=== PATIENT | female | born 1995 | race Caucasian/White ===

== ENCOUNTER 2017-05-24 17:14 | Outpatient (CLI) | payer SELFPAY ==
[2017-05-24] VITALS (9 sets, daily range): BP systolic 116–147; BP diastolic 59–84
[2017-05-24 18:54] LABS: BILIRUBIN,URINE NEGATIVE (NEGATIVE); KETONES,URINE NEGATIVE (NEGATIVE); LEUKOCYTE ESTERASE ,URINE 1+ (NEGATIVE); NITRITE,URINE NEGATIVE (NEGATIVE); PH,URINE 6 (5-9); PROTEIN,URINE 1+ (NEGATIVE); UROBILINOGEN,URINE 4 MG/DL (NORMAL)
[2017-05-24] MEDS ORDERED: PREN1TAB86 PO (19:10)
--- NOTE | 2017-05-24 19:25 | Diagnostic Imaging Report ---
EXAMINATION: Ultrasound OB dated 05/24/2017. INDICATION: Check head placement. TECHNIQUE: Multiple real-time grayscale images were obtained over the gravid uterus. COMPARISON: None FINDINGS: Limited evaluation of the fetus is performed. The fetus is a single live intrauterine gestation, currently in a cephalic position. Amniotic fluid index is within normal limits. Placenta is anterior. heart rate is 153 beats per minute. Cord insertion could not be seen by the senior interactive producer. The visualized anatomy unremarkable. Biometrical measurements are as follows: Biparietal 9.5 cm, age 39 weeks 0 days. Head circumference 34.82 cm, age 40 weeks 3 days. Abdominal circumference 34.86 cm, age 38 weeks 6 days. Femur length 7.30 cm, age 37 weeks 3 days. Sonographic estimate age: 39 weeks 0 days. Sonographic estimated date of delivery: 05/31/17. Estimated Weight: 3560 gm (+/- 520 gm). LMP percentile: 76%. heart rate: 153 beats per minute. number: 1 of 1. IMPRESSION: Single live intrauterine gestation currently cephalic in positioning. Dictated by: Dictated on workstation # [id number]
[2017-05-24] MEDS ORDERED: LACTATED RINGERS 1,000 ML IV ONE (22:00)
[2017-05-24 22:19] LABS: BASOPHILS % (AUTO) 0 % (0-10); EOSINOPHILS # (AUTO) 0.1 10^3/uL (0.0-0.3); EOSINOPHILS % (AUTO) 1 % (0-10); LYMPHOCYTES # (AUTO) 3.4 X 10^3 (1.0-4.0); LYMPHOCYTES % (AUTO) 19 % (12-44); MEAN CORPUSCULAR HEMOGLOBIN 31 PG (25-34); MEAN CORPUSCULAR HGB CONC 35 G/DL (32-36); MEAN CORPUSCULAR VOLUME 90 FL (80-99); MEAN PLATELET VOLUME 10.2 FL (7.4-10.4); MONOCYTES # (AUTO) 1.2 X 10^3 (0.0-1.0); MONOCYTES % (AUTO) 7 % (0-12); NEUTROPHILS # (AUTO) 13.4 X 10^3 (1.8-7.8); NEUTROPHILS % (AUTO) 74 % (42-75); PLATELET COUNT 242 10^3/uL (130-400); RED BLOOD COUNT 4.01 10^6/uL (4.35-5.85); RED CELL DISTRIBUTION WIDTH 13.3 % (10.0-14.5); WHITE BLOOD COUNT 18.1 10^3/uL (4.3-11.0)
[2017-05-24 22:35] LABS: ALANINE AMINOTRANSFERASE 16 U/L (0-55); ALBUMIN 3.3 GM/DL (3.2-4.5); ANION GAP 11 MMOL/L (5-14); ASPARTATE AMINO TRANSFERASE 24 U/L (5-34); BILIRUBIN,TOTAL 0.5 MG/DL (0.1-1.0); BLOOD UREA NITROGEN 12 MG/DL (7-18); BUN/CREATININE RATIO 20; CALCIUM 9.4 MG/DL (8.5-10.1); CARBON DIOXIDE 18 MMOL/L (21-32); CHLORIDE 105 MMOL/L (98-107); CREATININE SERUM 0.61 MG/DL (0.60-1.30); GFR ESTIMATED > 60; GLUCOSE 80 MG/DL (70-105); LACTATE DEHYDROGENASE 215 U/L (125-220); POTASSIUM 4.4 MMOL/L (3.6-5.0); SODIUM 134 MMOL/L (135-145); TOTAL PROTEIN 7.1 GM/DL (6.4-8.2); URIC ACID 5.1 MG/DL (2.6-7.2)
[2017-05-24 22:38] LABS: BAND NEUTROPHILS 7 %; BASOPHILS % (MANUAL) 0 %; EOSINOPHILS % (MANUAL) 1 %; LYMPHOCYTES % (MANUAL) 23 %; NEUTROPHILS % (MANUAL) 67 %
[2017-05-24 22:52] LABS: PROTEIN/CREATININE RATIO 0.25
--- NOTE | 2017-05-26 14:18 | Physician Query-Final Dx ---
POONAM MEDEIROS 05/26/17 1418: Clinic Account Progress/Dx Physician Query: Please give diagnosis Date of Service May 24, 2017 at 17:14 NADIA PINEDA MD 05/27/17 1031: Clinic Account Progress/Dx DIAGNOSIS: Diagnosis 39 weeks gestation Contractions without cervical change POONAM MEDEIROS May 26, 2017 14:18 NADIA PINEDA MD May 27, 2017 10:31
== END 2017-05-24 23:30 | disposition home or self-care (01) ==
LOC: LDRP 17:14 → WSo 17:14
PROVIDERS: ATTEND Family Medicine
DX: O47.1 False labor at or after 37 completed weeks of gestation (principal); Z3A.39 39 weeks gestation of pregnancy
CPT/HCPCS: 36415; 76805; 80053; 80306; 81000; 82570; 83615; 84156; 84550; 85007; 85027; 87077; 87088; 87186; 96360; 99214

== ENCOUNTER 2017-06-02 16:03 | Outpatient (CLI) | payer MEDICAID ==
[~2017-06-02 16:03] MED LIST: PREN1TAB86 PO
--- NOTE | 2017-06-02 17:30 | Diagnostic Imaging Report ---
INDICATION: well being. TECHNIQUE: biophysical profile is performed in the routine fashion. FINDINGS: Fetus scored 2/2 in breathing, body movement, posture and tone, and amniotic fluid. The amniotic fluid index was 10 cm. The fetus is in cephalic presentation. IMPRESSION: biophysical profile score 8/8. Dictated by: Dictated on workstation # [id number]
[2017-06-02 17:36] VITALS: BP 130/83
== END 2017-06-02 17:43 | disposition home or self-care (01) ==
LOC: RAD 16:03
PROVIDERS: ATTEND Family Medicine
DX: Z36 Encounter for antenatal screening of mother (principal); Z3A.39 39 weeks gestation of pregnancy
CPT/HCPCS: 76819

== ENCOUNTER 2017-06-04 05:18 | Inpatient (IN) | payer MEDICAID ==
[~2017-06-04] VITALS: Ht 172.2 cm; Wt 80.0 kg
[2017-06-04] VITALS (31 sets, daily range): BP systolic 106–136; BP diastolic 56–86
[2017-06-04] MEDS ORDERED: MINERAL OIL CONCENTRATE 99.9% 15 ML UDC TOP PRN (05:30)
[2017-06-04] MEDS ORDERED: D5 LR IV SOLUTION 1,000 ML IV SCH (05:30)
[2017-06-04] MEDS ORDERED: CATHETER FLUSH 10 ML SYR IV SCH ×2 (06:00→14:00)
[2017-06-04 06:22] LABS: BASOPHILS % (AUTO) 0 % (0-10); EOSINOPHILS # (AUTO) 0.2 10^3/uL (0.0-0.3); EOSINOPHILS % (AUTO) 1 % (0-10); LYMPHOCYTES # (AUTO) 3.1 X 10^3 (1.0-4.0); LYMPHOCYTES % (AUTO) 18 % (12-44); MEAN CORPUSCULAR HEMOGLOBIN 31 PG (25-34); MEAN CORPUSCULAR HGB CONC 34 G/DL (32-36); MEAN CORPUSCULAR VOLUME 92 FL (80-99); MEAN PLATELET VOLUME 9.8 FL (7.4-10.4); MONOCYTES # (AUTO) 0.8 X 10^3 (0.0-1.0); MONOCYTES % (AUTO) 5 % (0-12); NEUTROPHILS # (AUTO) 12.9 X 10^3 (1.8-7.8); NEUTROPHILS % (AUTO) 76 % (42-75); PLATELET COUNT 268 10^3/uL (130-400); RED BLOOD COUNT 3.82 10^6/uL (4.35-5.85); RED CELL DISTRIBUTION WIDTH 13.9 % (10.0-14.5)
[2017-06-04 06:28] LABS: BILIRUBIN,URINE NEGATIVE (NEGATIVE); KETONES,URINE NEGATIVE (NEGATIVE); LEUKOCYTE ESTERASE ,URINE 1+ (NEGATIVE); NITRITE,URINE NEGATIVE (NEGATIVE); PH,URINE 7 (5-9); PROTEIN,URINE NEGATIVE (NEGATIVE); UROBILINOGEN,URINE NORMAL (NORMAL)
[2017-06-04 06:38] LABS: WBC,URINE 0-2 /HPF
[2017-06-04] MEDS ORDERED: OXYTOCIN/NORMAL SALINE 500 ML IV SCH ×2 (07:20→11:42)
[2017-06-04] MEDS ORDERED: SUFENTA 0.6MCG/ML BUPIVA 0.125 100 ML ONE (07:30)
[2017-06-04] MEDS ORDERED: fentaNYL INJECTION 100 MCG/2 ML AMP ONE (08:04)
[2017-06-04] MEDS ORDERED: BUPIVACAINE 0.25% 30 ML (SENSORCAINE) VIAL ONE (08:05)
[2017-06-04] MEDS ORDERED: LACTATED RINGERS 1,000 ML IV ONE (08:32)
[2017-06-04] MEDS ORDERED: LACTATED RINGERS 1,000 ML IV SCH (08:36)
[2017-06-04] MEDS ORDERED: EPIDURAL (SUFENTA 0.6MCG/ML BUPIVA 0.125%) 100 ML BAG EPI PRN (08:45)
[2017-06-04] MEDS ORDERED: METOCLOPRAMIDE INJ 10 MG/2 ML (REGLAN) IV PRN (08:45)
[2017-06-04] MEDS ORDERED: CATHETER FLUSH 10 ML SYR IV PRN (08:45)
[2017-06-04] MEDS ORDERED: BUPIVACAINE 0.25% 30 ML (SENSORCAINE) VIAL INJ ONE (08:45)
[2017-06-04] MEDS ORDERED: fentaNYL INJECTION 100 MCG/2 ML AMP IJ PRN (08:45)
[2017-06-04] MEDS ORDERED: diphenhydrAMINE 50 MG/ML INJ (BENADRYL) IV PRN (08:45)
[2017-06-04] MEDS ORDERED: NALOXONE 0.4 MG/ML 1 ML (NARCAN) VIAL IV PRN ×3 (08:45)
[2017-06-04] MEDS ORDERED: ONDANSETRON 4 MG/2 ML (SDV) Z0FRAN IV PRN (08:45)
--- NOTE | 2017-06-04 09:00 | History & Physical-OB ---
OB - Chief Complaint & HPI Date/Time Date of Admission: Date of Admission: Jun 04, 2017 at 5:18 am Time Seen by Provider: 08:55 Chief Complaint/History OB-Reason for Admission/Chief: Induction of Labor Hx : 3 Hx Para: 2 Hx Last Menstrual Period: 08/30/2016 Expected Date of Delivery: Jun 06, 2017 Gestational Age in Weeks: 39 Gestational Age in Days: 5 Indication for : other (advanced cervical dilation, decreased movement) History of Labs A pos, antibody neg. Allergies and Home Medications Allergies Coded Allergies: Penicillins (Verified Allergy, Intermediate, ANAPHYLAXIS, 05/24/17) Home Medications Vit W-Ca,Fe,FA(<1 mg) 1 Each Tablet, 1 EACH PO DAILY, (Reported) OB - History Hx of Present Care: No (one visit in second trimester in another town) Obstetrical Complications: None Medical Complications: None Information Induced Hypertension: No Maternal Gestational Diabetes: No Hemorrhage: No Obstetrical History Hx : 3 Hx Para: 2 Hx # Term Pregnancies: 2 Hx # Pregnancies: 0 Number of Living Children: 2 Hx Multiple Gestation: No Hx Ectopic : No Hx Stillbirth: No Hx Complication: No Hx Induced Hypertens: No Hx Maternal Gestational Diabet: No Hx Hemorrhage: No Delivery History Hx Dystocia: No Hx Forceps Assisted Delivery: No Hx Vacuum Extraction Assisted: No Hx Placenta Abnormality: No Hx Distress: No Hx Large For Gestational Age I: No Hx Small for Gestational Age I: No Hx Section: No Hx Vaginal Delivery Post C-Sec: No Hx Blood Disorders: No Adverse Rxn to Tranfusion: No Patient Past Medical History PMHx: None PSurgHx: None Social History/Family History Recent Infectious Disease Expo: No Alcohol Use: Denies Use Recreational Drug Use: No Smoking Cessation: Former smoker Immunizations Rubella: unknown RPR/VDRL: Unknown GBS Status: Unknown HBsAG: Unknown OB - Admission Exam Physical Exam Date Seen by Provider: Jun 04, 2017 Time Seen by Provider: 09:03 Vitals: Vital Signs 06/04/17 05:49 Temp 98.4 Pulse 94 Resp 18 B/P (MAP) 121/76 O2 Delivery Room Air HEENT: NCAT Abdomen: Gravid Extremities: Normal Cervical Dilatation: 6cm Effacement: 100% Station: -2 Membranes: Intact Heart Rate: 150's Decelerations: Variable Decelerations Short Term Variability: Present Halfway Variability: Average (6-25) Contractions on Admission: < 5 Minutes Apart Intensity: Moderate Boogie Scoring Tool (Modified) Dilation (cm): >5cm (3) Effacement (%): 51-79% (2) Descent/Station: -2 (1) Cervix Consistency: Soft (2) Cervix Position: Middle/Mid-Position (1) Add 1 point for: Each previous vaginal delivery (1) Boogie Score: 11 Labs Laboratory Tests Test 06/04/17 05:30 06/04/17 05:55 Range/Units Urine Color YELLOW Urine Clarity SLIGHTLY CLOUDY Urine pH 7 5-9 Urine Specific [place] 1.010 L 1.016-1.022 Urine Protein NEGATIVE NEGATIVE Urine Glucose (UA) NEGATIVE NEGATIVE Urine Ketones NEGATIVE NEGATIVE Urine Nitrite NEGATIVE NEGATIVE Urine Bilirubin NEGATIVE NEGATIVE Urine Urobilinogen NORMAL NORMAL MG/DL Urine Leukocyte Esterase 1+ H NEGATIVE Urine RBC (Auto) NEGATIVE NEGATIVE Urine RBC NONE /HPF Urine WBC 0-2 /HPF Urine Squamous Epithelial Cells 10-25 H /HPF Urine Crystals NONE /LPF Urine Bacteria MODERATE H /HPF Urine Casts NONE /LPF Urine Mucus NEGATIVE /LPF Urine Culture Indicated YES Urine Opiates Screen NEGATIVE NEGATIVE Urine Oxycodone Screen NEGATIVE NEGATIVE Urine Methadone Screen NEGATIVE NEGATIVE Urine Propoxyphene Screen NEGATIVE NEGATIVE Urine Barbiturates Screen NEGATIVE NEGATIVE Ur Tricyclic Antidepressants Screen NEGATIVE NEGATIVE Urine Phencyclidine Screen NEGATIVE NEGATIVE Urine Amphetamines Screen NEGATIVE NEGATIVE Urine Methamphetamines Screen NEGATIVE NEGATIVE Urine Benzodiazepines Screen NEGATIVE NEGATIVE Urine Cocaine Screen NEGATIVE NEGATIVE Urine Cannabinoids Screen NEGATIVE NEGATIVE White Blood Count 17.0 H 4.3-11.0 10^3/uL Red Blood Count 3.82 L 4.35-5.85 10^6/uL Hemoglobin 11.9 11.5-16.0 G/DL Hematocrit 35 35-52 % Mean Corpuscular Volume 92 80-99 FL Mean Corpuscular Hemoglobin 31 25-34 PG Mean Corpuscular Hemoglobin Concent 34 32-36 G/DL Red Cell Distribution Width 13.9 10.0-14.5 % Platelet Count 268 130-400 10^3/uL Mean Platelet Volume 9.8 7.4-10.4 FL Neutrophils (%) (Auto) 76 H 42-75 % Lymphocytes (%) (Auto) 18 12-44 % Monocytes (%) (Auto) 5 0-12 % Eosinophils (%) (Auto) 1 0-10 % Basophils (%) (Auto) 0 0-10 % Neutrophils # (Auto) 12.9 H 1.8-7.8 X 10^3 Lymphocytes # (Auto) 3.1 1.0-4.0 X 10^3 Monocytes # (Auto) 0.8 0.0-1.0 X 10^3 Eosinophils # (Auto) 0.2 0.0-0.3 10^3/uL Basophils # (Auto) 0.0 0.0-0.1 10^3/uL OB - Assessment/Plan/Diagnosis Assessment Assessment: induction of labor, rupture of membranes Plan Plan: Induction Induction Method: AROM Other Plan at 39w5d by LMP c/w third trimester US, one visit was done in [place], records requested for labs. GBS unknown. IOL for advanced cervical dilation, decreased movement. Copy Copies To 1: NADIA PINEDA MD, BETHANY N MD Jun 04, 2017 9:00 am
[2017-06-04] MEDS ORDERED: LIDOCAINE/EPI 1%-1:200,000 (XYLOCAINE) 30 ML VIAL ONE (10:31)
[2017-06-04] MEDS ORDERED: MISOPROSTOL 200 MCG (CYTOTEC) TABLET ONE (10:50)
[2017-06-04] MEDS ORDERED: MISOPROSTOL 200 MCG (CYTOTEC) TABLET PR NR (10:55)
--- NOTE | 2017-06-04 11:16 | OB Labor & Delivery Record ---
Vag Delivery Note Vag Delivery Note Date of Delivery: 06/04/17 Preoperative Diagnosis: Ashley guerrero a (21 /Para 3 / 2, Gestational Age (wks)39with 5d Postoperative Diagnosis: Same Surgeon: NADIA PINEDA [employer]: Cierra Zuñiga MS3 Anesthesia: Epidural Delivery Type: Spontaneous vaginal delivery Findings: Viable male , apgars 7/9, weight 8#10 Lacerations: Periurethral abrasions Intact placenta with 3 vessel cord. Nuchal cord x 1, body cord or shoulder dystocia Cytotec 800 mcg placed for hemorrhage prophylaxis Estimated Blood Loss: 350 ml Complications: None Condition: Stable Description of Procedure: The patient is a who presented at 39w5d for IOL due to advanced cervical dilation and decreased movement with only 2 visits. She was admitted and informed consent was obtained. Her labor course was remarkable for rapid course. She progressed to complete dilatation and began to push. She was then set up for delivery. The infant's head was delivered atraumatically in the AUGUSTO position. Nuchal x1 easily reduced. The shoulders and remainder of the 's body were then delivered without difficulty. Upon delivery, the head was held below the level of the perineum. The was vigorous and placed on maternal abdomen. After a brief delay the cord was doubly clamped and cut and the was handed off to the pediatric staff. An intact placenta with 3-vessel cord delivered via Sari and there was found to be minimal bleeding.~ Vigorous fundal massage was performed and the fundus was found to be firm. IV oxytocin was given. Examination of the vagina and perineum revealed a bilateral periurethral abrasion. Following the repair, sponge, instrument and needle counts were correct. Mom and baby were both in stable condition in the labor suite. Vitals - Labs Vital Signs - I&O Vital Signs Date Time Temp Pulse Resp B/P (MAP) Pulse Ox O2 Delivery O2 Flow Rate FiO2 06/04/17 08:20 91 20 132/66 99 Room Air 06/04/17 08:15 100 20 129/76 100 Room Air 06/04/17 07:30 99.6 06/04/17 05:49 98.4 94 18 121/76 Room Air Labs Laboratory Tests 06/04/17 05:30: Urine Color YELLOW, Urine Clarity SLIGHTLY CLOUDY, Urine pH 7, Urine Specific [place] 1.010L, Urine Protein NEGATIVE, Urine Glucose (UA) NEGATIVE, Urine Ketones NEGATIVE, Urine Nitrite NEGATIVE, Urine Bilirubin NEGATIVE, Urine Urobilinogen NORMAL, Urine Leukocyte Esterase 1+H, Urine RBC (Auto) NEGATIVE, Urine RBC NONE, Urine WBC 0-2, Urine Squamous Epithelial Cells 10-25H, Urine Crystals NONE, Urine Bacteria MODERATEH, Urine Casts NONE, Urine Mucus NEGATIVE , Urine Culture Indicated YES, Urine Opiates Screen NEGATIVE, Urine Oxycodone Screen NEGATIVE, Urine Methadone Screen NEGATIVE, Urine Propoxyphene Screen NEGATIVE, Urine Barbiturates Screen NEGATIVE, Ur Tricyclic Antidepressants Screen NEGATIVE, Urine Phencyclidine Screen NEGATIVE, Urine Amphetamines Screen NEGATIVE, Urine Methamphetamines Screen NEGATIVE, Urine Benzodiazepines Screen NEGATIVE, Urine Cocaine Screen NEGATIVE, Urine Cannabinoids Screen NEGATIVE 06/04/17 05:55: White Blood Count 17.0H, Red Blood Count 3.82L, Hemoglobin 11.9, Hematocrit 35, Mean Corpuscular Volume 92, Mean Corpuscular Hemoglobin 31, Mean Corpuscular Hemoglobin Concent 34, Red Cell Distribution Width 13.9, Platelet Count 268, Mean Platelet Volume 9.8, Neutrophils (%) (Auto) 76H, Lymphocytes (%) (Auto) 18 , Monocytes (%) (Auto) 5, Eosinophils (%) (Auto) 1, Basophils (%) (Auto) 0, Neutrophils # (Auto) 12.9H, Lymphocytes # (Auto) 3.1, Monocytes # (Auto) 0.8, Eosinophils # (Auto) 0.2, Basophils # (Auto) 0.0 NADIA PINEDA MD Jun 04, 2017 11:16 am
[2017-06-04] MEDS ORDERED: WITCH HAZEL(TUCKS) 40 EA JAR TOP PRN (11:45)
[2017-06-04] MEDS ORDERED: BENZOCAINE/MENTHOL (DERMOPLAST) 56 ML CAN TP PRN (11:45)
[2017-06-04] MEDS ORDERED: TETANUS,DIPTH,PERTUSS P/F (BOOSTRIX) 0.5 ML VIAL IM ONE (11:45)
[2017-06-04] MEDS ORDERED: MEASLES,MUMPS,RUBELLA 1 EA INJ SQ ONE (11:45)
[2017-06-04] MEDS: IBUPROFEN 600 MG (MOTRIN) TAB PO SCH ×2 (13:30→19:41)
[2017-06-04] MEDS: HYDROcodone/APAP 5 MG/325 MG (LORTAB) TAB PO PRN ×2 (15:45→22:47)
[2017-06-04] MEDS: NITROFURANTOIN 100 MG (MACROBID) CAPSULE PO SCH (20:13)
[2017-06-05 00:36] VITALS: BP 107/63
[2017-06-05 04:45] VITALS: BP 114/77
[2017-06-05] MEDS: IBUPROFEN 600 MG (MOTRIN) TAB PO SCH ×4 (05:11→23:53)
[2017-06-05] MEDS: HYDROcodone/APAP 5 MG/325 MG (LORTAB) TAB PO PRN ×4 (05:11→23:53)
[2017-06-05 05:55] LABS: BASOPHILS % (AUTO) 0 % (0-10); EOSINOPHILS # (AUTO) 0.1 10^3/uL (0.0-0.3); EOSINOPHILS % (AUTO) 1 % (0-10); LYMPHOCYTES # (AUTO) 4.1 X 10^3 (1.0-4.0); LYMPHOCYTES % (AUTO) 24 % (12-44); MEAN CORPUSCULAR HEMOGLOBIN 31 PG (25-34); MEAN CORPUSCULAR HGB CONC 34 G/DL (32-36); MEAN CORPUSCULAR VOLUME 93 FL (80-99); MEAN PLATELET VOLUME 9.8 FL (7.4-10.4); MONOCYTES # (AUTO) 0.9 X 10^3 (0.0-1.0); MONOCYTES % (AUTO) 5 % (0-12); NEUTROPHILS # (AUTO) 11.9 X 10^3 (1.8-7.8); NEUTROPHILS % (AUTO) 70 % (42-75); PLATELET COUNT 229 10^3/uL (130-400); RED BLOOD COUNT 3.61 10^6/uL (4.35-5.85); WHITE BLOOD COUNT 17.1 10^3/uL (4.3-11.0)
[2017-06-05] MEDS ORDERED: TETANUS,DIPTH,PERTUSS P/F (BOOSTRIX) 0.5 ML VIAL IM ONE (09:45)
[2017-06-05] MEDS ORDERED: MEASLES,MUMPS,RUBELLA 1 EA INJ ONE (09:45)
[2017-06-05 09:58] VITALS: BP 112/76
[2017-06-05] MEDS: NITROFURANTOIN 100 MG (MACROBID) CAPSULE PO SCH ×2 (10:00→20:28)
[2017-06-05] MEDS: PRENATAL VITAMIN 1 EA TAB PO SCH (10:01)
--- NOTE | 2017-06-05 12:16 | Anesthesia-Regional Post-Op ---
Regional Patient Condition Mental Status: Alert, Oriented x3 Circulation: Same as Pre-Op Headache: Absent Sensation: Full Recovery Motor Block: Absent Post Op Complications Complications None Follow Up Care/Instructions Patient Instructions None needed. Anesthesia/Patient Condition Patient is doing well, stable vital signs, no apparent adverse anesthesia problems. No complications reported per nursing. Patient reports to me that her epidural did not work for delivery. I discussed this with Oliva Harrison RN. She reports the patient was bolused per anesthesia in between placement and delivery, but there continued to always be a window of pain. Noted the same information on the patient's anesthesia record, written by Chayo Ramirez CRNA, who placed the epidural. ADRIAN ITRADO CRNA Jun 05, 2017 12:15
--- NOTE | 2017-06-05 15:29 | Progress Note (SOAP) ---
Subjective Subjective/Events-last exam Patient doing well this AM. Bottle feeding . Pain well controlled on PO meds. Tolerating PO diet and ambulation. Lochia the same as a period. Not passing clots Review of Systems Time Seen by Provider: 10:00 General: No Chills HEENT: No Visual Changes Pulmonary: No Dyspnea, No Cough Cardiovascular: No: Chest Pain Gastrointestinal: No: Abdominal Pain, Nausea, Vomiting Objective Exam Last Set of Vital Signs Vital Signs Date Time Temp Pulse Resp B/P (MAP) Pulse Ox O2 Delivery O2 Flow Rate FiO2 06/05/17 09:58 97.6 91 18 112/76 99 Room Air 06/04/17 11:00 15.00 Capillary Refill : I&O Bad tableGeneral: Alert, Oriented X3, Cooperative, No Acute Distress Lungs: Clear to Auscultation, Normal Air Movement Heart: Regular Rate, No Murmurs Abdomen: Normal Bowel Sounds, Soft, No Tenderness, Other (Fundus firm and below umbilicus) Extremities: No Edema, No Tenderness/Swelling Neuro: Normal Speech Psych/Mental Status: Mental Status NL, Mood NL Results/Procedures Lab Laboratory Tests 06/05/17 05:33: White Blood Count 17.1H, Red Blood Count 3.61L, Hemoglobin 11.3L, Hematocrit 34L , Mean Corpuscular Volume 93, Mean Corpuscular Hemoglobin 31, Mean Corpuscular Hemoglobin Concent 34, Red Cell Distribution Width 14.0, Platelet Count 229, Mean Platelet Volume 9.8, Neutrophils (%) (Auto) 70, Lymphocytes (%) (Auto) 24, Monocytes (%) (Auto) 5, Eosinophils (%) (Auto) 1, Basophils (%) (Auto) 0, Neutrophils # (Auto) 11.9H, Lymphocytes # (Auto) 4.1H, Monocytes # (Auto) 0.9, Eosinophils # (Auto) 0.1, Basophils # (Auto) 0.0 Microbiology 06/04/17 Urine Culture - Preliminary, Resulted Gram Negative Julio Cesar Assessment/Plan Assessment/Plan Plan 21 yo G3 now P3 del term male via , PPD#1 Plan - Encouraged ambulation, PO meds for pain - Bleeding controlled, Hgb >11 - Late care, Maternal labs have been drawn, we do not have Hep B status - Bottle feeding - Plan to D.c mother tomorrow with follow up [address] Espinoza Diagnosis/Problems: Clinical Quality Measures DVT/VTE Risk/Contraindication: Risk Factor Score Per Nursin RFS Level Per Nursing on Admit: 1=Low/No VTE PPX VICKI PEREZ MD Jun 05, 2017 3:29 pm
[2017-06-05 17:54] VITALS: BP 122/78
[2017-06-05 20:40] VITALS: BP 133/84
[2017-06-06] MEDS: IBUPROFEN 600 MG (MOTRIN) TAB PO SCH ×2 (05:23→11:53)
[2017-06-06 05:30] VITALS: BP 112/69
[2017-06-06] MEDS: HYDROcodone/APAP 5 MG/325 MG (LORTAB) TAB PO PRN ×2 (06:15→11:13)
[2017-06-06 08:25] VITALS: BP 132/78
[2017-06-06] MEDS: PRENATAL VITAMIN 1 EA TAB PO SCH (08:58)
[2017-06-06] MEDS: NITROFURANTOIN 100 MG (MACROBID) CAPSULE PO SCH (08:58)
[2017-06-06] MEDS ORDERED: IBUP-1773 PO (09:25)
--- NOTE | 2017-06-06 09:27 | Discharge Instructions ---
Discharge Inst-Women's Serv Depart Medications New, Converted or Re-Newed RX: Transmitted to Pharmacy Final Diagnosis Term Delivery of male via New Medications: Ibuprofen (Ibuprofen) 600 Mg Tablet 600 MG PO Q6H, #60 TAB Continued Medications: Vit W-Ca,Fe,FA(<1 mg) ( Vitamins) 1 Each Tablet 1 EACH PO DAILY, TAB Follow Up/Instructions Goal/Follow Up: You will need to follow up with Dr Espinoza in 6 weeks Activity Activity: Activity as Tolerated Driving Instructions: You May Drive NO SMOKING: NO SMOKING Nothing Inside Vagina: No Douching, No [place] (Until cleared by Dr Espinoza at 6 week visit), No Tampons Diet Discharge Diet: No Restrictions Symptoms to Report to : Bleeding Excessive, Pain Increased, Fever Over 101 Degrees F, Vaginal Discharge Foul, Shortness of Breath For Any Problems or Questions: Contact Your Physician Skin/Wound Care Bathing Instructions: Shower Copies To 1: NADIA ESPINOZA MD, HOLLY R MD Jun 06, 2017 09:27
--- NOTE | 2017-06-06 09:32 | Discharge Summary ---
Diagnosis/Chief Complaint Date of Admission Jun 04, 2017 at 05:18 Date of Discharge 06/06/2017 Admission Diagnosis Admission Diagnosis Induction of labor with advance dilatation Term Discharge Diagnosis Delivery of male infant via Term vaginal delivery Chief Complaint/HPI Chief Complaint/HPI 21 yo that presented to L&D with advanced dilatation and contractions Discharge Summary-Simple/Stand Procedures Discharge Physical Examination Allergies: Coded Allergies: Penicillins (Verified Allergy, Intermediate, ANAPHYLAXIS, 05/24/17) Vitals & I&Os Vital Sign - Last 12Hours Date Time Temp Pulse Resp B/P (MAP) Pulse Ox O2 Delivery O2 Flow Rate FiO2 06/06/17 05:30 96.3 69 17 112/69 95 Room Air 06/04/17 11:00 15.00 General Appearance: Alert, Oriented X3 HEENT: Mucous Memb Moist/[place] Respiratory: Clear to Auscultation, Normal Air Movement Cardiovascular: Regular Rate, No Murmurs Abdominal: Normal Bowel Sounds, Soft, Other (Fundus firm below umbilicus) Extremities: No Edema, No Tenderness/Swelling Skin: No Rashes Neuro: Normal Speech Psych/Mental Status: Mental Status NL, Mood NL Hospital Course See final discharge diagnosis. Labs Hgb stable 11.7->11.3 Discussion & Recommendations 21 yo G3 now P3 delivered male via @ term. Unknown Hep B and RPR status due to late care. Only had 2 visits and only [address] Espinoza. Discharge Condition at discharge Stable Instructions to patient/family Please see electonic discharge instructions given to patient. Discharge Medications Reviewed and agree with Discharge Medication list on patient's Discharge Instruction sheet Clinical Quality Measures DVT/VTE Risk/Contraindication: Risk Factor Score Per Nursin RFS Level Per Nursing on Admit: 1=Low/No VTE PPX Copy Copies To 1: NADIA ESPINOZA MD, HOLLY R MD Jun 06, 2017 09:32
== END 2017-06-06 12:52 | disposition home or self-care (01) | DRG 775 ==
LOC: LDRP 05:18
PROVIDERS: ADMIT Family Medicine; ATTEND Family Medicine
PROC: 10E0XZZ Delivery of Products of Conception, External Approach (ICD-10-PCS; principal; 2017-06-04)
DX: O36.8130 Decreased fetal movements, third trimester, not applicable or unspecified (principal); O69.81X0 Labor and delivery complicated by cord around neck, without compression, not applicable or unspecified; O62.3 Precipitate labor; O09.33 Supervision of pregnancy with insufficient antenatal care, third trimester; Z3A.39 39 weeks gestation of pregnancy; Z37.0 Single live birth; Z23 Encounter for immunization
CPT/HCPCS: 36415; 80306; 81000; 85025; 86850; 86900; 86901; 87077; 87088; 87186; 90707; 90715